=== PATIENT | male | born 1975 | race Caucasian/White ===

== ENCOUNTER 2016-11-24 12:44 | Emergency (ER) | payer OTHER ==
[~2016-11-24] VITALS: Ht 188 cm; Wt 100.0 kg
[~2016-11-24 12:44] MED LIST: LORA-392 PO; ZOFR4TAB3 SL
[2016-11-24 12:46] VITALS: BP 140/90; PULSE 120; RESP 12; TEMP 98.1; O2SAT 99
== END 2016-11-24 13:54 | disposition left against medical advice (07) ==
LOC: NED 12:44
DX: R68.89 Other general symptoms and signs (principal)
CPT/HCPCS: 99281